=== PATIENT | male | born 1960 | race Caucasian/White ===

== ENCOUNTER 2020-08-14 08:00 | Day surgery (SDC) | payer OTHER ==
[2020-08-13 12:56] LABS: BASOPHILS % (AUTO) 1.1 % (0.0-2.0); EOSINOPHILS % (AUTO) 1.9 % (1.0-6.0); HEMATOCRIT 30.4 % (41-53); HEMOGLOBIN 9.9 g/dL (13.5-17.5); LYMPHOCYTES # (AUTO) 0.6 K/uL (1.0-4.8); LYMPHOCYTES % (AUTO) 15.2 % (22.0-44.0); MEAN CORPUSCULAR HEMOGLOBIN 31.5 pg (26.0-34.0); MEAN CORPUSCULAR HGB CONC 32.7 G/dL (31.0-37.0); MEAN CORPUSCULAR VOLUME 97 fL (80-100); MONOCYTES # (AUTO) 0.1 K/uL (0.1-1.0); MONOCYTES % (AUTO) 3.1 % (2.0-9.0); NEUTROPHILS # (AUTO) 3.3 K/uL (1.8-7.7); NEUTROPHILS % (AUTO) 78.7 % (40.0-70.0); PLATELET COUNT (AUTO) 190 K/uL (150-450); RED BLOOD CELL COUNT(AUTO) 3.15 MIL/uL (4.50-5.90); RED CELL DISTRIBUTION WIDTH 17.4 % (11.5-14.5)
[2020-08-13 13:05] LABS: CALCIUM, TOTAL 8.7 mg/dL (8.8-10.5); CREATININE 6.25 mg/dL (0.60-1.30); POTASSIUM 4.8 mmol/L (3.5-5.1)
[2020-08-13 13:11] LABS: BILIRUBIN,TOTAL 0.3 mg/dL (0.1-1.0)
[2020-08-13 13:13] LABS: INR 1.1 (0.9-1.1); PROTHROMBIN TIME 11.2 SEC (9.4-11.6)
[~2020-08-14] VITALS: Ht 180.3 cm; Wt 88.2 kg
[~2020-08-14 08:00] MED LIST: SODIUM CHLORIDE 0.9% 1,000 ML IV ONE
[2020-08-14] MEDS ORDERED: FentaNYL CITRATE-PF 100 MCG/2 ML VIAL IVP ONE (08:01)
[2020-08-14] MEDS ORDERED: MIDAZOLAM HCL 2 MG/2 ML VIAL IVP ONE (08:01)
[2020-08-14] MEDS ORDERED: ONDANSETRON HCL 4 MG/2 ML VIAL IVP ONE (08:01)
[2020-08-14] MEDS ORDERED: HEPARIN SODIUM,PORCINE 1,000 UNITS/ML 10 ML VIAL IVP ONE (08:01)
[2020-08-14] MEDS ORDERED: PROPOFOL 1% 20 ML VIAL IVP ONE (08:01)
[2020-08-14] MEDS ORDERED: LIDOCAINE/PF 2% 5 ML SYRINGE IVP ONE (08:01)
[2020-08-14 09:17] LABS: GLUCOMETER DEV NAME(LOC) SDS.; GLUCOSE,POINT OF CARE 122 MG/DL (70-110)
[2020-08-14] MEDS ORDERED: ASPI-728 PO (09:30)
[2020-08-14] MEDS ORDERED: HYDR25TA84 PO (09:30)
[2020-08-14] MEDS ORDERED: ALLO-44 PO (09:30)
[2020-08-14] MEDS ORDERED: TAMS-13 PO (09:30)
[2020-08-14] MEDS ORDERED: ATOR40TA28 PO (09:30)
[2020-08-14] MEDS ORDERED: NIFE-64 PO (09:30)
[2020-08-14] MEDS ORDERED: SENN8.6T20 PO (09:30)
[2020-08-14] MEDS ORDERED: CALC0.25 PO (09:30)
[2020-08-14] MEDS ORDERED: FERR-89 PO (09:30)
[2020-08-14] MEDS ORDERED: METO25 PO (09:30)
[2020-08-14] MEDS ORDERED: BUME1TAB34 PO (09:30)
[2020-08-14] MEDS ORDERED: GABA-1216 PO (09:30)
[2020-08-14] MEDS ORDERED: DOCU-275 PO (09:30)
[2020-08-14] MEDS ORDERED: LISI-661 PO (09:30)
[2020-08-14] MEDS ORDERED: CLOP-31 PO (09:30)
[2020-08-14] MEDS ORDERED: KETAMINE HCL 50 MG/ML 10 ML VIAL ONE (11:37)
[2020-08-14] MEDS ORDERED: LIDOCAINE/PF 1% 30 ML VIAL ONE (11:37)
[2020-08-14] MEDS ORDERED: SODIUM CHLORIDE 0.9% 250 ML IV ONE ×2 (12:27→12:40)
[2020-08-14] MEDS ORDERED: HEPARIN SODIUM,PORCINE 5,000 UNITS/ML VIAL ONE ×2 (12:27→12:41)
[2020-08-14] MEDS ORDERED: SODIUM CHLORIDE 0.9% 1,000 ML ONE (13:24)
[2020-08-14] MEDS ORDERED: OXYGEN THERAPY IH SCH (20:00)
== END 2020-08-14 16:10 | disposition home or self-care (01) ==
LOC: SURGERY 08:00
PROVIDERS: ATTEND Surgery
DX: I12.0 Hypertensive chronic kidney disease with stage 5 chronic kidney disease or end stage renal disease (principal); E11.22 Type 2 diabetes mellitus with diabetic chronic kidney disease; E11.51 Type 2 diabetes mellitus with diabetic peripheral angiopathy without gangrene; N18.5 Chronic kidney disease, stage 5; I25.10 Atherosclerotic heart disease of native coronary artery without angina pectoris; I35.0 Nonrheumatic aortic (valve) stenosis; E78.00 Pure hypercholesterolemia, unspecified; Z90.49 Acquired absence of other specified parts of digestive tract; Z98.890 Other specified postprocedural states; Z98.42 Cataract extraction status, left eye; Z98.41 Cataract extraction status, right eye; Z79.82 Long term (current) use of aspirin
CPT/HCPCS: 36415; 36821; 80053; 82962; 85025; 85610; 85730; 87426; 93005; J1644; J3490 ×2; J7030; J7050; J2250; J2405; J2704; J3010